=== PATIENT | male | born 1970 | race Caucasian/White ===

== ENCOUNTER 2017-01-13 15:22 | Inpatient (IN) | payer OTHER ==
[~2017-01-13] VITALS: Ht 172.7 cm; Wt 73.5 kg
[2017-01-13 19:01] LABS: UA SPECIFIC GRAVITY >=1.030 (1.005-1.035); microscopic required? YES; urine erythrocyte 3+ (NEGATIVE)
[2017-01-13 19:44] LABS: BASOPHIL % 0.2 % (0-2); PLATELET COUNT 276 x10^3mcL (130-400); RED CELL DISTRIBUTION WIDTH 13.2 % (11.5-14.5)
[2017-01-13 19:49] LABS: CALCIUM 8.8 mg/dL (8.5-10.1); CARBON DIOXIDE 28.7 mmol/L (21-32); CHLORIDE SERUM 105 mmol/L (98-107); CREATININE SERUM 1.2 mg/dL (0.7-1.3); GFR1 > 60 mL/min; GLUCOSE SERUM 81 mg/dL (74-106); POTASSIUM SERUM 3.8 mmol/L (3.5-5.1); SODIUM SERUM 141 mmol/L (136-145)
[2017-01-13 19:53] LABS: ALBUMIN 4.3 g/dL (3.4-5.0); ALKALINE PHOSPHATASE 104 U/L (46-116); ALT/SGPT 21 U/L (16-63); AST/SGOT 17 U/L (15-37); TOTAL PROTEIN, SERUM 7.2 g/dL (6.4-8.2)
[2017-01-13 22:17] LABS: PHOSPHOROUS 2.7 mg/dL (2.5-4.9)
[2017-01-13 22:19] LABS: CHOLESTEROL/HDL RATIO 7.3
[2017-01-13 22:26] LABS: T3 TOTAL 1.26 ng/mL
[2017-01-13 22:28] LABS: FREE T4 1.12 ng/dL (0.76-1.46); FREE THYROXINE INDEX 2.6 ug/dL (1.4-4.5); T4(THYROXINE) 8.5 ug/dL (4.7-13.3)
[2017-01-13] MEDS ORDERED: ASPIR 8181 MG PO (23:17)
[2017-01-13 23:35] LABS: AMPHETAMINE QUAL UR NONE DETECTED (NEG <=1000)
[2017-01-14 01:09] VITALS: BP 143/88
[2017-01-14 01:15] VITALS: Ht 172.7 cm; Wt 73.5 kg
[2017-01-14 05:41] LABS: BASOPHIL % 0.3 % (0-2); PLATELET COUNT 233 x10^3mcL (130-400); RED CELL DISTRIBUTION WIDTH 13.2 % (11.5-14.5)
[2017-01-14 05:59] LABS: CALCIUM 8.3 mg/dL (8.5-10.1); CARBON DIOXIDE 28.4 mmol/L (21-32); CREATININE SERUM 1.6 mg/dL (0.7-1.3); POTASSIUM SERUM 3.8 mmol/L (3.5-5.1)
[2017-01-14 06:20] VITALS: BP 126/78
[2017-01-14 08:43] VITALS: BP 127/79
[2017-01-14 12:37] VITALS: BP 123/87
== END 2017-01-14 17:51 | disposition left against medical advice (07) | DRG 694 ==
LOC: ED 15:22 → MU 21:05 → DU 21:05 → MU 01-14 06:41
PROVIDERS: Emergency Medicine; ADMIT Family Medicine
DX: N13.2 Hydronephrosis with renal and ureteral calculous obstruction (principal); J98.11 Atelectasis; N17.0 Acute kidney failure with tubular necrosis; I16.0 Hypertensive urgency; E78.5 Hyperlipidemia, unspecified; R31.9 Hematuria, unspecified; M47.9 Spondylosis, unspecified; M43.10 Spondylolisthesis, site unspecified; F17.210 Nicotine dependence, cigarettes, uncomplicated; Z87.442 Personal history of urinary calculi; Z53.20 Procedure and treatment not carried out because of patient's decision for unspecified reasons; Z79.82 Long term (current) use of aspirin; Z68.24 Body mass index [BMI] 24.0-24.9, adult
CPT/HCPCS: 80307; 83880; 84439; 94150; C9113; J1885; J2060; J2405; J3010; J7030; Q0092